=== PATIENT | male | born 1995 | race American Indian/Alaskan Native ===

== ENCOUNTER 2019-09-02 23:20 | Emergency (ER) | payer SELFPAY ==
[2019-09-03 01:21] VITALS: BP 162/101
--- NOTE | 2019-09-03 01:46 | XRay Report ---
CHEST 1 VIEW, 09/03/2019 1:25 AM CLINICAL INFORMATION/INDICATION: Chest pain COMPARISON: None FINDINGS: SUPPORT DEVICES: None. HEART: The cardiac silhouette is normal in size. LUNGS/PLEURA: The lungs are clear of focal airspace disease or significant pleural effusion. ADDITIONAL FINDINGS: No additional acute findings. IMPRESSION: 1. No evidence of acute cardiopulmonary process. Signer Name: Xiomara Ramirez MD Signed: 09/03/2019 1:41 AM Workstation Name: [id number]
== END 2019-09-03 07:00 | disposition left against medical advice (07) ==
LOC: ED 23:20
DX: R07.89 Other chest pain (principal); Z53.21 Procedure and treatment not carried out due to patient leaving prior to being seen by health care provider
CPT/HCPCS: 71045; 93005; 93010